=== PATIENT | female | born 1950 | race Caucasian/White ===

== ENCOUNTER → 2022-01-05 | Outpatient (CLI) | payer MEDICARE ==
--- NOTE | 2022-01-05 16:30 | Diagnostic Imaging Report ---
INDICATION: Pain and swelling of the left arm. Recent mastectomy. COMPARISON: None TECHNIQUE: Duplex, barentt-scale and color-flow imaging of the left upper extremity venous system was performed. FINDINGS: Left jugular and subclavian veins show no evidence of intraluminal thrombosis. The axillary, brachial, basilic and cephalic veins are patent. These vessels show normal compressibility, color flow and Doppler augmentation. IMPRESSION: Negative venous Doppler of left upper extremity. Dictated by: Dictated on workstation # [id number]
== END ==
LOC: RAD 15:27
PROVIDERS: ATTEND Internal Medicine Hematology & Oncology
DX: M79.622 Pain in left upper arm (principal); M79.89 Other specified soft tissue disorders; Z90.12 Acquired absence of left breast and nipple

== ENCOUNTER 2022-03-11 19:46 | Emergency (ER) | payer MEDICARE, OTHER ==
[~2022-03-11] VITALS: Ht 160 cm; Wt 75.7 kg
[2022-03-11 20:09] LABS: BILIRUBIN,URINE NEGATIVE (NEGATIVE); CLARITY,URINE CLEAR; COLOR,URINE YELLOW; GLUCOSE, URINE (UA) NEGATIVE (NEGATIVE); KETONES,URINE NEGATIVE (NEGATIVE); LEUKOCYTE ESTERASE ,URINE NEGATIVE (NEGATIVE); NITRITE,URINE NEGATIVE (NEGATIVE); PROTEIN,URINE NEGATIVE (NEGATIVE)
[2022-03-11 20:16] LABS: BACTERIA,URINE NEGATIVE /HPF; WBC,URINE RARE /HPF
--- NOTE | 2022-03-11 20:17 | ED General ---
General Chief Complaint: General Problems/Pain Stated Complaint: FEVER Nursing Triage Note: PT AMB TO RM 7 W C/O FEVER OF 100.4, CHILLS, BURNING W URINATION, AND SWIFT SX THIS AFTERNOON. PT CURRENTLY ON CHEMOTHERAPY FOR BREAST CA. PT A&OX4, AFEBRILE DURING TRIAGE. Source of Information: Patient Exam Limitations: No Limitations History of Present Illness Date Seen by Provider: Mar 11, 2022 Time Seen by Provider: 20:02 Initial Comments 71-year-old female presents to the ED with reports of low-grade temperature and chills. Patient is on chemotherapy for breast cancer, last chemo was on Tuesday 03/07. She started chemo January 24, 2022. She has also had a mastectomy. States she was having a lot of chills at home and feeling warm, so she checked her temperature and it was 100.4. States that when she went outside in the cold she actually felt better, no fever noted here. She reports headache in the frontal region. Reports she has had a runny nose since starting chemo, reports the drainage has been green the last 2 to 3 days but only in the mornings. She denies cough, chest pain, shortness of air, nausea/vomiting, body aches. She reports dysuria, but states that has been ongoing since starting the chemo. She reports heartburn, but states this is not new. She reports lack of back appetite, but states this is also not new. Other past medical history includes hypertension, high cholesterol, thyroid ablation, borderline diabetes, abnormal/elevated heart rate. She currently takes levothyroxine, metoprolol, lisinopril, hydrochlorothiazide, simvastatin, metformin, she also takes steroids with the chemo. Allergies and Home Medications Allergies Coded Allergies: Penicillins (Verified Allergy, Unknown, 03/11/22) Sulfa (Sulfonamide Antibiotics) (Verified Allergy, Unknown, 03/11/22) codeine (Verified Allergy, Unknown, 03/11/22) nitrofurantoin (Verified Allergy, Unknown, 03/11/22) Patient Home Medication List Home Medication List Reviewed: Yes Doxycycline Hyclate (Doxycycline Hyclate) 100 Mg Tablet.dr 100 MG PO BID Prescribed by: Roseann Peters on 03/11/22 0116 Review of Systems Review of Systems Constitutional: see HPI Past Hzcigss-Wlsqwk-Ekhshu Hx Patient Social History Tobacco Use?: No Use of E-Cig and/or Vaping dev: No Substance use?: No Alcohol Use?: No Immunizations Up To Date Influenza Vaccine Up-to-Date: Yes; Up-to-Date First/Initial COVID19 Vaccinat: 2020 Second COVID19 Vaccination Wilfred: 2020 Third COVID19 Vaccination Date: 2021 COVID19 Vaccine Administration Intern: MODERNA X3 Past Medical History Surgery/Hospitalization HX: BREAST CA, CURRENTLY TAKING CHEMOTHERAPY Physical Exam Vital Signs Vital Signs - First Documented 03/11/22 19:54 Temp 36.9 Pulse 104 Resp 20 B/P (MAP) 145/65 (91) Pulse Ox 98 O2 Delivery Room Air Capillary Refill : Less Than 3 Seconds Height, Weight, BMI Height: '" Weight: lbs. oz. kg; 29.00 BMI Method: General Appearance: No Apparent Distress, WD/WN Neck: Normal Inspection, Supple Respiratory: Lungs Clear, Normal Breath Sounds, No Accessory Muscle Use, No Respiratory Distress Cardiovascular: Regular Rate, Rhythm, No Edema, No Gallop, No JVD, No Murmur Gastrointestinal: Normal Bowel Sounds Extremity: Normal Inspection, Normal Range of Motion Neurologic/Psychiatric: Alert, Oriented x3, No Motor/Sensory Deficits Skin: Normal Color, Warm/Dry Focused Exam Lactate Level 03/11/22 20:30: Lactic Acid Level 1.33 Lactic Acid Level Laboratory Tests Test 03/11/22 20:30 Lactic Acid Level 1.33 MMOL/L (0.50-2.00) Progress/Results/Core Measures Suspected Sepsis SIRS Temperature: Pulse: 104 Respiratory Rate: 20 Laboratory Tests 03/11/22 20:30: White Blood Count 10.0 Blood Pressure 145 /65 Mean: 91 03/11/22 20:30: Lactic Acid Level 1.33 Laboratory Tests 03/11/22 20:30: Creatinine 0.66, INR Comment 1.0, Platelet Count 201, Total Bilirubin 0.4 Results/Orders Lab Results Laboratory Tests Test 03/11/22 19:58 03/11/22 20:00 03/11/22 20:30 Range/Units Influenza Type A (RT-PCR) Not Detected Not Detecte Influenza Type B (RT-PCR) Not Detected Not Detecte SARS-CoV-2 RNA (RT-PCR) Not Detected Not Detecte Urine Color YELLOW Urine Clarity CLEAR Urine pH 6.0 5-9 Urine Specific [place] 1.015 L 1.016-1.022 Urine Protein NEGATIVE NEGATIVE Urine Glucose (UA) NEGATIVE NEGATIVE Urine Ketones NEGATIVE NEGATIVE Urine Nitrite NEGATIVE NEGATIVE Urine Bilirubin NEGATIVE NEGATIVE Urine Urobilinogen 0.2 < = 1.0 MG/DL Urine Leukocyte Esterase NEGATIVE NEGATIVE Urine RBC (Auto) NEGATIVE NEGATIVE Urine RBC NONE /HPF Urine WBC RARE /HPF Urine Crystals NONE /LPF Urine Bacteria NEGATIVE /HPF Urine Casts NONE /LPF Urine Mucus NEGATIVE /LPF Urine Culture Indicated NO White Blood Count 10.0 4.3-11.0 10^3/uL Red Blood Count 3.09 L 3.80-5.11 10^6/uL Hemoglobin 9.0 L 11.5-16.0 g/dL Hematocrit 26 L 35-52 % Mean Corpuscular Volume 85 80-99 fL Mean Corpuscular Hemoglobin 29 25-34 pg Mean Corpuscular Hemoglobin Concent 34 32-36 g/dL Red Cell Distribution Width 17.2 H 10.0-14.5 % Platelet Count 201 130-400 10^3/uL Mean Platelet Volume 8.5 L 9.0-12.2 fL Immature Granulocyte % (Auto) 15 % Neutrophils (%) (Auto) 81 H 42-75 % Lymphocytes (%) (Auto) 2 L 12-44 % Monocytes (%) (Auto) 1 0-12 % Eosinophils (%) (Auto) 0 0-10 % Basophils (%) (Auto) 1 0-10 % Neutrophils # (Auto) 8.1 H 1.8-7.8 10^3/uL Lymphocytes # (Auto) 0.2 L 1.0-4.0 10^3/uL Monocytes # (Auto) 0.1 0.0-1.0 10^3/uL Eosinophils # (Auto) 0.0 0.0-0.3 10^3/uL Basophils # (Auto) 0.1 0.0-0.1 10^3/uL Immature Granulocyte # (Auto) 1.5 H 0.0-0.1 10^3/uL Neutrophils % (Manual) 97 % Lymphocytes % (Manual) 3 % Toxic Granulation 1+ Dohle Bodies SLIGHT Microcytosis SLIGHT Prothrombin Time 13.4 12.2-14.7 SEC INR Comment 1.0 0.8-1.4 Activated Partial Thromboplast Time 21 L 24-35 SEC Sodium Level 132 L 135-145 MMOL/L Potassium Level 3.9 3.6-5.0 MMOL/L Chloride Level 96 L 98-107 MMOL/L Carbon Dioxide Level 23 21-32 MMOL/L Anion Gap 13 5-14 MMOL/L Blood Urea Nitrogen 18 7-18 MG/DL Creatinine 0.66 0.60-1.30 MG/DL Estimat Glomerular Filtration Rate 94 BUN/Creatinine Ratio 27 Glucose Level 117 H 70-105 MG/DL Lactic Acid Level 1.33 0.50-2.00 MMOL/L Calcium Level 10.0 8.5-10.1 MG/DL Corrected Calcium 10.0 8.5-10.1 MG/DL Total Bilirubin 0.4 0.1-1.0 MG/DL Aspartate Amino Transf (AST/SGOT) 10 5-34 U/L Alanine Aminotransferase (ALT/SGPT) 19 0-55 U/L Alkaline Phosphatase 120 40-136 U/L Total Protein 6.5 6.4-8.2 GM/DL Albumin 4.0 3.2-4.5 GM/DL My Orders Orders - ROSEANN PETERS APRN Covid 19 Inhouse Test (03/11/22 20:01) Influenza A And B By Pcr (03/11/22 20:01) Ua Culture If Indicated (03/11/22 20:01) Cbc With Automated Diff (03/11/22 20:02) Comprehensive Metabolic Panel (03/11/22 20:02) Blood Culture (03/11/22 20:02) Protime With Inr (03/11/22 20:02) Partial Thromboplastin Time (03/11/22 20:02) Chest 1 View, Ap/Pa Only (03/11/22 20:02) Ed Iv/Invasive Line Start (03/11/22 20:02) Lactic Acid Analyzer (03/11/22 20:02) Ondansetron Injection (Zofran Injectio (03/11/22 20:45) Ns Iv 1000 Ml (Sodium Chloride 0.9%) (03/11/22 20:45) Manual Differential (03/11/22 20:30) Doxycycline Hyclate Tablet (Vibramycin T (03/11/22 22:00) Medications Given in ED Current Medications Medications Dose Ordered Sig/Astrid Route Start Time Stop Time Status Last Admin Dose Admin Doxycycline Hyclate 100 mg ONCE ONCE PO 03/11/22 22:00 03/11/22 22:01 DC 03/11/22 22:05 100 MG Ondansetron HCl 4 mg ONCE ONCE IVP 03/11/22 20:45 03/11/22 20:46 DC 03/11/22 20:50 4 MG Vital Signs/I&O 03/11/22 19:54 Temp 36.9 Pulse 104 Resp 20 B/P (MAP) 145/65 (91) Pulse Ox 98 O2 Delivery Room Air Capillary Refill : Less Than 3 Seconds Blood Pressure Mean: 91 Progress Note #1: Time: 20:18 Progress Note Patient seen and evaluated, resting comfortably in bed, no acute distress. On exam and symptoms, concern for sepsis due to immunocompromise state. Work-up initiated including CBC, CMP, coags, lactic acid, UA, COVID/flu, chest x-ray, blood cultures x2. Progress Note #2: Time: :23 Progress Note Labs reviewed. CBC shows normal white blood cell count at 10.0, low RBC at 3.09, low hemoglobin at 9.0, patient states her hemoglobin on Sunday was 9.3, low hematocrit at 26. CMP shows low sodium at 132, normal potassium 3.9, low chloride at 96, elevated glucose at 117. Lactic acid normal at 1.33. Coags show PT 13.4, INR 1.0, APTT low at 21. Urine negative for nitrates, leukocytes, bacteria, WBCs rare. Flu/COVID-negative. Will call Dr. Hanson, oncology, for consult. Diagnostic Imaging Diagonstic Imaging: Xray Plain Films/CT/US/NM/MRI: chest Comments [facility], [place] NAME: ROGER AVALOS [facility] REC#: [id number] PT STATUS: REG ER : 1950 PHYSICIAN: ROSEANN PETERS APRN ADMIT DATE: 03/11/22/ER Draft Date of Exam:03/11/22 CHEST 1 VIEW, AP/PA ONLY PATIENT HISTORY: Fever, on chemo. TECHNIQUE: Single frontal view of the chest. COMPARISON: None. FINDINGS: The lung volumes are normal. No focal consolidation is seen. No large pleural effusion or pneumothorax is seen. The cardiomediastinal silhouette is normal in size and contour. No acute osseous abnormality is seen. The right Port-A-Cath tip projects over the cavoatrial junction. Multiple surgical clips are noted in the left chest. IMPRESSION: No acute pulmonary abnormality seen. Dictated on workstation # [id number] Dict: 03/11/222108 Trans: 03/11/222114 [facility] [id number] Interpreted by: CORI PHOENIX MD Electronically signed by: Departure Communication (Admissions) Time/Spoke to Consulting Phy: 21:[address] Hanson, oncology, regarding patient. He suggested treating patient for rhinosinusitis with an antibiotic for 7 to 10 days, and to have patient follow-up on Sunday for her blood draw. Recommends patient return to ER or call the clinic if she begins to feel worse. Impression Primary Impression: Rhinosinusitis Disposition: HOME, SELF-CARE Condition: Stable Departure-Patient Inst. Decision time for Depature: 21:55 Referrals: NO,LOCAL PHYSICIAN (PCP/Family) Primary Care Physician Patient Instructions: Sinusitis in Adults Add. Discharge Instructions: Take antibiotic as prescribed, complete full course of antibiotic even if you begin to feel better. Go to your follow-up appointment with the cancer center on Sunday to get your labs drawn. If you begin to feel worse, you may come back to the ER, or call the clinic. Return if you continue to have elevated temperatures, increased burning with urination, urinary frequency, chest pain, shortness of air, cough, or any other new, concerning, or worsening symptoms. All discharge instructions reviewed with patient and/or family. Voiced understanding. Scripts Doxycycline Hyclate (Doxycycline Hyclate) 100 Mg Tablet. 100 MG PO BID for 10 Days, #20 TAB 0 Refills Prov: ROSEANN PETERS APRN 03/11/22 Copy Copies To 1: AKIL HANSON BRITTANY R APRN Mar 11, 2022 20:17
[2022-03-11 20:45] LABS: BASOPHILS # (AUTO) 0.1 10^3/uL (0.0-0.1); BASOPHILS % (AUTO) 1 % (0-10); EOSINOPHILS % (AUTO) 0 % (0-10); HEMATOCRIT 26 % (35-52); LYMPHOCYTES # (AUTO) 0.2 10^3/uL (1.0-4.0); LYMPHOCYTES % (AUTO) 2 % (12-44); MEAN CORPUSCULAR HEMOGLOBIN 29 pg (25-34); MEAN CORPUSCULAR HGB CONC 34 g/dL (32-36); MEAN CORPUSCULAR VOLUME 85 fL (80-99); MEAN PLATELET VOLUME 8.5 fL (9.0-12.2); MONOCYTES # (AUTO) 0.1 10^3/uL (0.0-1.0); MONOCYTES % (AUTO) 1 % (0-12); NEUTROPHILS # (AUTO) 8.1 10^3/uL (1.8-7.8); NEUTROPHILS % (AUTO) 81 % (42-75); PLATELET COUNT 201 10^3/uL (130-400)
[2022-03-11] MEDS ORDERED: ONDANSETRON 4 MG/2 ML (SDV) Z0FRAN IVP ONE (20:45)
[2022-03-11] MEDS ORDERED: NS IV 1000 ML 1,000 ML IV SCH (20:45)
[2022-03-11 20:56] LABS: PROTHROMBIN TIME PATIENT 13.4 SEC (12.2-14.7)
[2022-03-11 21:05] LABS: BILIRUBIN,TOTAL 0.4 MG/DL (0.1-1.0); CREATININE SERUM 0.66 MG/DL (0.60-1.30); LYMPHOCYTES % (MANUAL) 3 %; NEUTROPHILS % (MANUAL) 97 %; POTASSIUM 3.9 MMOL/L (3.6-5.0); TOTAL PROTEIN 6.5 GM/DL (6.4-8.2); TOXIC GRANULATION/VACUOLAZATIO 1+
[2022-03-11 21:06] LABS: MICROCYTOSIS SLIGHT
--- NOTE | 2022-03-11 21:15 | Diagnostic Imaging Report ---
PATIENT HISTORY: Fever, on chemo. TECHNIQUE: Single frontal view of the chest. COMPARISON: None. FINDINGS: The lung volumes are normal. No focal consolidation is seen. No large pleural effusion or pneumothorax is seen. The cardiomediastinal silhouette is normal in size and contour. No acute osseous abnormality is seen. The right Port-A-Cath tip projects over the cavoatrial junction. Multiple surgical clips are noted in the left chest. IMPRESSION: No acute pulmonary abnormality seen. Dictated by: Dictated on workstation # [id number]
[2022-03-11] MEDS ORDERED: DOXY-227 PO (21:59)
[2022-03-11] MEDS ORDERED: DOXYCYCLINE 100 MG (VIBRAMYCIN) TABLET PO ONE (22:00)
[2022-03-11 22:10] VITALS: BP 128/61
== END 2022-03-11 22:10 | disposition home or self-care (01) ==
LOC: EDUNIT# 19:46 → ER 19:50
DX: J32.9 Chronic sinusitis, unspecified (principal); C50.919 Malignant neoplasm of unspecified site of unspecified female breast; Z20.822 Contact with and (suspected) exposure to COVID-19; Z90.10 Acquired absence of unspecified breast and nipple; Z88.1 Allergy status to other antibiotic agents
CPT/HCPCS: 36415; 71045; 80053; 81000; 83605; 85007; 85027; 85610; 85730; 87040; 87636